=== PATIENT | male | born 1970 | race Caucasian/White ===

== ENCOUNTER 2021-11-25 07:09 | Emergency (ER) | payer SELFPAY ==
[2021-11-25] VITALS (45 sets, daily range): BP systolic 83–151; BP diastolic 60–100
[2021-11-25 07:55] LABS: HEMATOCRIT 39.3 % (39.0-50.0); HEMOGLOBIN 12.9 g/dl (14.0-18.0); IMMATURE GRANULOCYTES 0.1 % (0.0-5.0); MEAN CELL VOLUME 86.8 fL CALC (80.0-100.0); MEAN CORPUSCULAR HGB 28.5 pG CALC (26.0-32.0); MEAN CORPUSCULAR HGB CONC 32.8 g/dL CAL (32.0-36.0); NEUT# 4.44 thou/uL (1.82-7.42); RED BLOOD COUNT 4.53 mill/uL (4.70-6.10); RED CELL DISTRI WIDTH 15.1 % (11.5-15.5)
[2021-11-25 08:14] LABS: ACT PARTIAL THROMBO TIME 25.2 SECONDS (20.0-32.5); ALBUMIN 3.9 g/dL (3.2-5.0); ALKALINE PHOSPHATASE 77 u/l (38-126); ANION GAP 6 (6-22 (CALC)); BILIRUBIN, TOTAL 0.3 mg/dL (0.0-1.4); BUN 9 mg/dL (9-20); BUN/CREATININE RATIO 12 (12-20 (CALC)); CARBON DIOXIDE 29 mmol/l (22-30); CHLORIDE 109 mmol/l (95-108); CPK 82 u/l (52-200); CREATININE 0.8 mg/dL (0.7-1.3); ETHYL ALCOHOL 0 mg/dl (0-30); GFR > 60 ML/MIN (>=60 (CALC)); GFR FOR AFR.AMER. > 60 ML/MIN (>=60 (CALC)); LIPASE 27 u/l (23-300); POTASSIUM 3.9 mmol/l (3.5-5.1); PROTHROMBIN TIME 10.3 SECONDS (9.0-12.5); SGOT/AST 41 u/l (17-59); SODIUM 140 mmol/l (137-146); TOTAL PROTEIN 7.2 g/dL (6.3-8.2)
[2021-11-25 15:59] LABS: URINE BILIRUBIN - DIPSTICK NEGATIVE (NEGATIVE); URINE BLOOD DIPSTICK NEGATIVE (NEGATIVE); URINE COLOR YELLOW; URINE GLUCOSE - DIPSTICK NEGATIVE (NEGATIVE); URINE KETONE NEGATIVE (NEGATIVE); URINE LEUK ESTERASE NEGATIVE (NEGATIVE); URINE PROTEIN - DIPSTICK NEGATIVE (NEG-TRACE); URINE UROBILINOGEN - DIPSTICK 0.2 E.U./dL (0.2)
[2021-11-25 16:07] LABS: URINE NITRITE - DIPSTICK NEGATIVE (Negative)
== END 2021-11-25 18:46 | disposition home or self-care (01) | DRG 897 ==
LOC: ED 07:09
PROVIDERS: Internal Medicine
DX: F19.10 Other psychoactive substance abuse, uncomplicated (principal)
CPT/HCPCS: J2060

== ENCOUNTER 2022-05-26 21:14 | Emergency (ER) | payer OTHER ==
[~2022-05-26] VITALS: Ht 177.8 cm; Wt 70.0 kg
[2022-05-26] MEDS ORDERED: BACTRIM DS1 TAB PO (22:16)
[2022-05-26] MEDS ORDERED: CLEOCIN300 MG PO (22:16)
[2022-05-26] MEDS ORDERED: ULTRAM50 M1 PO ×2 (22:17→22:20)
[2022-05-26 22:26] VITALS: BP 105/62
== END 2022-05-26 22:30 | disposition home or self-care (01) ==
LOC: ED 21:14
DX: L03.115 Cellulitis of right lower limb (principal)